=== PATIENT | female | born 1990 | race Caucasian/White ===

== ENCOUNTER 2019-07-18 16:41 | Emergency (ER) | payer SELFPAY ==
[~2019-07-18] VITALS: Ht 167.6 cm; Wt 64.0 kg
[2019-07-18 16:46] VITALS: BP 112/75
[2019-07-18 20:45] LABS: HIV ANTIBODY 1&2 RAPID NON-REACTIVE (Neg)
[2019-07-20 08:13] LABS: HBSAG SCREEN Negative (Negative); HEPATITIS C ANTIBODY >11.0 s/co ratio (0.0-0.9)
== END 2019-07-18 20:22 | disposition home or self-care (01) ==
LOC: ER 16:42
DX: F11.10 Opioid abuse, uncomplicated (principal); Z11.4 Encounter for screening for human immunodeficiency virus [HIV]; Z88.2 Allergy status to sulfonamides
CPT/HCPCS: 36415; 86703; 86803; 87340; 99283

== ENCOUNTER 2020-08-12 18:03 | Emergency (ER) | payer MEDICAID ==
[~2020-08-12] VITALS: Ht 167.6 cm; Wt 73.0 kg
--- NOTE | 2020-08-12 18:06 | NUR ---
Patient checked in and immediately left to have cigarette. Not in lobby when called by triage nurse
[2020-08-12 18:11] VITALS: BP 117/74
[2020-08-12] MEDS ORDERED: ACYC-202 PO (18:53)
[2020-08-12] MEDS ORDERED: DOXY100C43 PO (18:53)
[2020-08-12] MEDS ORDERED: ACYC5CRE2 TOP (18:53)
== END 2020-08-12 19:17 | disposition home or self-care (01) ==
LOC: ER 18:03
DX: B00.1 Herpesviral vesicular dermatitis (principal); L02.811 Cutaneous abscess of head [any part, except face]; R59.1 Generalized enlarged lymph nodes; F11.90 Opioid use, unspecified, uncomplicated; Z88.2 Allergy status to sulfonamides; Z79.899 Other long term (current) drug therapy
CPT/HCPCS: 99283